=== PATIENT | female | born 1965 | race Caucasian/White ===

== ENCOUNTER 2018-01-05 11:02 | Inpatient (IN) | payer OTHER ==
[2018-01-05 14:31] LABS: ADD MAN DIFF? NO
[2018-01-05 14:43] LABS: WHITE BLOOD COUNT 9.2 10^3/ul (4.8-10.8)
[2018-01-05 14:43] LABS: ABNORMAL IP MESSAGE 1; BASOPHILS % 0.2 % (0.0-2.0); EOSINOPHILS % 0.1 % (0.0-7.0); HEMATOCRIT 43.2 % (37.0-47.0); LYMPHOCYTES # 0.4 10^3/ul (0.8-2.9); LYMPHOCYTES % 4.8 % (15.0-51.0); MEAN CORPUSCULAR HGB CONC 34.7 g/dl (32.0-37.0); MEAN CORPUSCULAR VOLUME 89.3 fl (82.0-101.0); MEAN PLATELET VOLUME 9.8 fl (7.4-10.4); MONOCYTE # 0.2 10^3/ul (0.3-0.9); MONOCYTES % 2.4 % (0.0-11.0); NEUTROPHIL # 8.4 10^3/ul (1.6-7.5); NEUTROPHILS % 92.1 % (39.0-77.0); PLATELET COUNT 315 10^3/UL (140-415); RED BLOOD COUNT 4.84 10^6/ul (4.20-5.40); RED CELL DISTRIBUTION WIDTH 13.7 % (11.5-14.5)
[2018-01-05 14:45] LABS: POSITIVE DIFF @See below
[2018-01-05 14:48] LABS: ADD UMIC YES; UR ASCORBIC ACID NEGATIVE (NEGATIVE); UR BACTERIA MANY /HPF (NONE SEEN); UR BILIRUBIN (Dip) NEGATIVE (NEGATIVE); UR BLOOD (Dip) 2+ mg/dL (NEGATIVE); UR CLARITY SLIGHTLY CLOUDY (CLEAR); UR COLOR YELLOW (YELLOW); UR GLUCOSE (Dip) NEGATIVE (NEGATIVE); UR HYALINE CAST FEW /HPF (NONE SEEN); UR KETONES (Dip) 1+ mg/dL (NEGATIVE); UR LEUKOCYTE ESTERASE (Dip) 2+ Leu/ul (NEGATIVE); UR MUCUS MANY /HPF (NONE SEEN); UR NITRITE (Dip) POSITIVE (NEGATIVE); UR RBC 4 /HPF (0-5); UR SPECIFIC GRAVITY (Dip) 1.019 (1.003-1.030); UR SQUAMOUS EPITHELIAL CELL FEW /HPF (FEW); UR TOTAL PROTEIN (Dip) 1+ mg/dl (NEGATIVE); UR UROBILINOGEN (Dip) NEGATIVE (NEGATIVE); UR WBC 92 /HPF (0-5)
[2018-01-05] MEDS: SODIUM CHLORIDE 0.9% 1L BAG IV* (14:56)
[2018-01-05] MEDS: IBUPROFEN 600 MG TAB PO (14:56)
[2018-01-05] MEDS: CEFTRIAXONE 1 GM/50 ML (PMX) 50 ML IVPB (14:56)
[2018-01-05 14:57] LABS: INR 0.88; PT RATIO 0.9
[2018-01-05 14:58] LABS: ALANINE AMINOTRANSFERASE 28 IU/L (13-69); ALBUMIN 4.5 g/dl (3.3-4.9); ALBUMIN/GLOBULIN RATIO 1.36; ALKALINE PHOSPHATASE 70 IU/L (42-121); ANION GAP 18 (8-16); ASPARTATE AMINO TRANSFERASE 35 IU/L (15-46); BILIRUBIN,INDIRECT 0.3 mg/dl (0-1.1); BILIRUBIN,TOTAL 0.3 mg/dl (0.2-1.3); BLOOD UREA NITROGEN 17 mg/dl (7-20); CARBON DIOXIDE 27 mmol/L (21-31); CHLORIDE 98 mmol/L (97-110); CREATININE 1.13 mg/dl (0.44-1.00); GLUCOSE 124 mg/dl (70-220); LIPASE 89 U/L (23-300); PARTIAL THROMBOPLASTIN TIME 28.1 Sec (25.0-35.0); POTASSIUM 3.9 mmol/L (3.5-5.1); SODIUM 139 mmol/L (135-144); TOTAL PROTEIN 7.8 g/dl (6.1-8.1)
[2018-01-05 15:01] LABS: ACETAMINOPHEN < 10.0 ug/ml (10.0-30.0); ETHANOL < 10.0 mg/dl; SALICYLATE < 1.0 mg/dl (5.0-30.0)
[2018-01-05 15:01] LABS: LACTIC ACID 1.8 mmol/L (0.5-2.0)
[2018-01-05 15:06] LABS: TROPONIN-I < 0.012 ng/ml (0.000-0.120)
[2018-01-05 15:16] LABS: AMPHETAMINE/METHAMPHETAMINE Negative (NEGATIVE); BARBITURATES Positive (NEGATIVE); CANNABINOIDS Negative (NEGATIVE); COCAINE Negative (NEGATIVE); OPIATES Negative (NEGATIVE)
[2018-01-05 15:17] LABS: BENZODIAZEPINES Positive (NEGATIVE)
[2018-01-05 16:51] LABS: LACTIC ACID 1.4 mmol/L (0.5-2.0)
[2018-01-05 19:10] LABS: AMYLASE 49 U/L (11-123)
[2018-01-05 19:10] LABS: LIPASE 71 U/L (23-300)
[2018-01-05 19:11] LABS: LACTIC ACID 0.8 mmol/L (0.5-2.0)
[2018-01-05] MEDS: ACETAMINOPHEN 500 MG TAB PO (20:31)
[2018-01-05] MEDS: ALPRAZOLAM 0.25 MG TAB PO (20:31)
[2018-01-05] MEDS: ONDANSETRON 4 MG INJ IV (20:31)
[2018-01-05] MEDS: D5W-0.45 NACL + KCL 20 MEQ 1,000 ML IV (20:32)
[2018-01-05] MEDS: BUSPIRONE 5 MG TAB PO (22:22)
[2018-01-06] MEDS: CEFAZOLIN 1 GM/50 ML (PMX) 50 ML IVPB ×3 (01:07→11:32)
[2018-01-06] MEDS: hydrOXYzine HCL 25 MG TAB PO ×2 (01:07→11:07)
[2018-01-06] MEDS: ACETAMINOPHEN 500 MG TAB PO ×2 (02:48→11:08)
[2018-01-06 06:17] LABS: ADD MAN DIFF? NO
[2018-01-06 06:29] LABS: WHITE BLOOD COUNT 6.3 10^3/ul (4.8-10.8)
[2018-01-06 06:29] LABS: BASOPHILS % 0.5 % (0.0-2.0); EOSINOPHILS % 0.6 % (0.0-7.0); HEMATOCRIT 38.3 % (37.0-47.0); HEMOGLOBIN 13.1 g/dl (12.0-16.0); LYMPHOCYTES % 15.5 % (15.0-51.0); MEAN CORPUSCULAR HEMOGLOBIN 30.5 pg (29.0-33.0); MEAN CORPUSCULAR HGB CONC 34.2 g/dl (32.0-37.0); MEAN CORPUSCULAR VOLUME 89.3 fl (82.0-101.0); MEAN PLATELET VOLUME 10.3 fl (7.4-10.4); MONOCYTE # 0.3 10^3/ul (0.3-0.9); NEUTROPHILS % 78.8 % (39.0-77.0); PLATELET COUNT 238 10^3/UL (140-415); RED BLOOD COUNT 4.29 10^6/ul (4.20-5.40); RED CELL DISTRIBUTION WIDTH 14.5 % (11.5-14.5)
[2018-01-06 06:58] LABS: ALANINE AMINOTRANSFERASE 32 IU/L (13-69); ALBUMIN 3.6 g/dl (3.3-4.9); ALKALINE PHOSPHATASE 54 IU/L (42-121); ANION GAP 16 (8-16); ASPARTATE AMINO TRANSFERASE 36 IU/L (15-46); BILIRUBIN,INDIRECT 0.2 mg/dl (0-1.1); BILIRUBIN,TOTAL 0.2 mg/dl (0.2-1.3); BLOOD UREA NITROGEN 14 mg/dl (7-20); CALCIUM 8.9 mg/dl (8.4-10.2); CARBON DIOXIDE 27 mmol/L (21-31); CHLORIDE 101 mmol/L (97-110); CREATININE 0.85 mg/dl (0.44-1.00); GLUCOSE 115 mg/dl (70-220); POTASSIUM 3.3 mmol/L (3.5-5.1); SODIUM 141 mmol/L (135-144); TOTAL PROTEIN 6.6 g/dl (6.1-8.1)
[2018-01-06 07:38] LABS: ERYTHROCYTE SEDIMENTATION RATE 13 mm/Hr (0-30)
[2018-01-06] MEDS: BUSPIRONE 5 MG TAB PO (08:50)
[2018-01-06] MEDS ORDERED: KETOROLAC 60 MG INJ IM (11:03)
[2018-01-06] MEDS: D5W-0.45 NACL + KCL 20 MEQ 1,000 ML IV (11:31)
[2018-01-06] MEDS: POTASSIUM CHLORIDE (SR) 20 MEQ TAB PO (11:32)
[2018-01-06] MEDS: AMLODIPINE 5 MG TAB PO (12:16)
[2018-01-06 13:30] LABS: TROPONIN-I < 0.012 ng/ml (0.000-0.120)
[2018-01-06] MEDS: ALPRAZOLAM 0.25 MG TAB PO (14:35)
== END 2018-01-06 18:18 | disposition home or self-care (01) | DRG 313 ==
LOC: 6WM 01-06 13:26 → E/R 11:02 → 2NE 16:26 → 6WM 19:45
DX: R07.9 Chest pain, unspecified (principal); N39.0 Urinary tract infection, site not specified; R55 Syncope and collapse; E86.0 Dehydration; Z91.81 History of falling; F41.9 Anxiety disorder, unspecified; F32.9 Major depressive disorder, single episode, unspecified; R51 Headache; F13.10 Sedative, hypnotic or anxiolytic abuse, uncomplicated
CPT/HCPCS: 36415; 71045; 72170; 73562; 80053; 80307; 81001; 82150; 83605; 83690; 84484; 85025; 85610; 85651; 85730; 87040; 87086; 93005; 96374; 99285-25